=== PATIENT | female | born 1990 | race Caucasian/White ===

== ENCOUNTER → 2022-11-25 09:49 | Outpatient (CLI) | payer OTHER, SELFPAY ==
--- NOTE | 2022-11-25 09:52 | DI.RAD.S_ITS ---
PROCEDURE: XR HAND RT MIN 3V INDICATIONS: Right index finger injury TECHNIQUE: 3 views of the hand(s) acquired. COMPARISON: None. FINDINGS: Bones: No fractures or dislocations. Carpal bones are normally aligned. No suspicious bony lesions. Soft tissues: No suspicious soft tissue calcifications. IMPRESSION: No acute osseous abnormality. If symptoms persist, follow-up radiographs and/or CT or MRI may be helpful for further evaluation. Dictated by: Neymar Saldaña M.D. on 11/25/2022 at 10:25 Approved by: Neymar Saldaña M.D. on 11/25/2022 at 10:29
== END ==
PROVIDERS: PCP Physician Assistant Medical; Referring Provider Registered Nurse; Visit Provider Registered Nurse
DX: M79.641 Pain in right hand (principal)
CPT/HCPCS: 73130